=== PATIENT | female | born 1960 | race Caucasian/White ===

== ENCOUNTER 2022-02-08 10:58 | Emergency (ER) | payer MEDICAID ==
[~2022-02-08] VITALS: Ht 162.6 cm; Wt 79.5 kg
[2022-02-08 11:29] VITALS: BP 179/58
[2022-02-08] MEDS ORDERED: OXYC-658 PO ×2 (14:50→14:55)
[2022-02-08] MEDS ORDERED: ketorolac trometh inj. 60 MG/2 ML VIAL IM ONE (14:50)
[2022-02-08] MEDS ORDERED: ONDA4TAB12 PO ×3 (14:50→14:57)
[2022-02-11] MEDS ORDERED: METO100T14 PO (14:41)
[2022-02-11] MEDS ORDERED: LOSA100T57 PO (14:41)
[2022-02-11] MEDS ORDERED: SPIR50TA5 PO (14:41)
[2022-02-11] MEDS ORDERED: HYDR25TA4 PO (14:41)
[2022-02-11] MEDS ORDERED: CITA40TA30 PO (14:41)
[2022-02-11] MEDS ORDERED: ATOR-2 PO (14:41)
[2022-02-11] MEDS ORDERED: BUSP15TA7 PO (14:41)
[2022-02-11] MEDS ORDERED: LEVO50TA8 PO (14:41)
[2022-02-17] MEDS ORDERED: ASPI-1071 PO (14:37)
[2022-02-17] MEDS ORDERED: CEFD300C3 PO (14:37)
[2022-02-17] MEDS ORDERED: ALBU8.5H17 INH (14:37)
[2022-02-17] MEDS ORDERED: LACT1CAP26 PO (14:37)
== END 2022-02-08 15:09 | disposition home or self-care (01) ==
LOC: ER 10:59
DX: M54.31 Sciatica, right side (principal); G89.29 Other chronic pain; M54.9 Dorsalgia, unspecified; Z79.899 Other long term (current) drug therapy; Z91.013 Allergy to seafood
CPT/HCPCS: 96372; 99283; J1885